=== PATIENT | female | born 1995 | race Caucasian/White ===

== ENCOUNTER 2017-08-10 17:36 | Emergency (ER) | payer MEDICAID ==
[~2017-08-10] VITALS: Ht 182.9 cm; Wt 70.9 kg
[2017-08-10 17:37] VITALS: BP 136/97
[2017-08-10] MEDS ORDERED: DIAZEPAM 5 MG TABLET ONE (17:56)
[2017-08-10] MEDS ORDERED: KETOROLAC 30 MG/1 ML IM ONE (18:00)
[2017-08-10] MEDS ORDERED: DIAZEPAM 5 MG TABLET PO ONE (18:30)
== END 2017-08-10 19:18 | disposition home or self-care (01) ==
LOC: ED 18:50
DX: S39.012A Strain of muscle, fascia and tendon of lower back, initial encounter (principal); M54.16 Radiculopathy, lumbar region; Z88.1 Allergy status to other antibiotic agents; F17.200 Nicotine dependence, unspecified, uncomplicated; X58.XXXA Exposure to other specified factors, initial encounter; Y93.89 Activity, other specified; Y99.8 Other external cause status; Y92.89 Other specified places as the place of occurrence of the external cause
CPT/HCPCS: 72110; 99284; J7512

== ENCOUNTER 2019-05-23 13:41 | Emergency (ER) | payer MEDICAID ==
[~2019-05-23] VITALS: Ht 182.9 cm; Wt 113.0 kg
--- NOTE | 2019-05-23 14:02 | NUR ---
THIS IS A 24 YO F W/ C/O SHAKINESS X1 MONTH AND MIGRAINES FOR 20/30 OF THE DAYS OF THE MONTH. PT STATES SHAKINESS IS WORSENING. DENIES CAFFEINE USE AND EXCESSIVE SUGAR CONSUMPTION. MATERNAL HX DM. RESP EVEN AND UNLABORED. NADN. CALL LIGHT IN REACH. PT IS RESTING ON GURNEY AWAITING ED EVAL. DENIES FURTHER NEEDS AT THIS TIME.
--- NOTE | 2019-05-23 14:39 | NUR ---
PT AMBULATED TO THE BR W/ A STEADY GAIT. PROVIDE URINE COLELCTION CUP.
[2019-05-23 14:42] VITALS: BP 137/104
[2019-05-23 14:53] LABS: HCG UR SG 1.028 (1.003-1.030)
--- NOTE | 2019-05-23 14:54 | NUR ---
LAB IN ROOM.
[2019-05-23 14:58] LABS: CULTURE INDICATED? YES; MICROSCOPIC INDICATED
[2019-05-23 15:21] LABS: ALANINE AMINOTRANSFERASE 14 U/L (12-78); ALBUMIN 3.8 g/dL (3.4-5.0); ANION GAP 5 mmol/L (5-15); CALCIUM 9.3 mg/dL (8.5-10.1); CHLORIDE 113 mmol/L (98-107); CREATININE 0.69 mg/dL (0.55-1.02)
[2019-05-23 15:24] LABS: ALKALINE PHOSPHATASE 71 U/L (45-117); BILIRUBIN,TOTAL 0.5 mg/dL (0.2-1.0); TOTAL PROTEIN 7.4 g/dL (6.4-8.2)
[2019-05-23 15:35] LABS: BASOPHILS # (AUTO) 0.04 x10^3/uL (0-0.1); BASOPHILS % (AUTO) 1 % (0-1); EOSINOPHILS # (AUTO) 0.14 x10^3/uL (0-0.4); EOSINOPHILS % (AUTO) 2 % (1-7); LYMPHOCYTES # (AUTO) 2.32 x10^3/uL (1-3.4); LYMPHOCYTES % (AUTO) 36 % (22-44); MD NO; MEAN CORPUSCULAR HEMOGLOBIN 30.8 pg (27.0-34.8); MEAN CORPUSCULAR HGB CONC 33.6 g/dL (32.4-35.8); MEAN CORPUSCULAR VOLUME 91.5 fL (80-100); MEAN PLATELET VOLUME 8.9 fL (7.4-10.4); MONOCYTES # (AUTO) 0.58 x10^3/uL (0.2-0.8); MONOCYTES % (AUTO) 9 % (2-9); NEUTROPHILS # (AUTO) 3.31 x10^3/uL (1.8-6.8); NEUTROPHILS % (AUTO) 52 % (42-75); PLATELET COUNT 283 x10^3/uL (130-400); RED BLOOD COUNT 4.59 x10^6/uL (3.82-5.3); RED CELL DISTRIBUTION WIDTH 12.9 % (9.6-15.2)
--- NOTE | 2019-05-23 15:54 | NUR ---
Patient given discharge instructions and they have confirmed that they understand the instructions. Patient ambulatory with steady gait.
== END 2019-05-23 15:55 | disposition home or self-care (01) ==
LOC: ED 15:37
DX: N30.00 Acute cystitis without hematuria (principal)
CPT/HCPCS: 36415; 80053; 81001; 81025; 85025; 87086; 99283

== ENCOUNTER 2020-07-07 12:34 | Emergency (ER) | payer MEDICAID ==
[~2020-07-07] VITALS: Ht 182.9 cm; Wt 104.0 kg
[2020-07-07] MEDS ORDERED: HYDROcodone/APAP 5/325 TABLET PO ONE (13:30)
[2020-07-07] MEDS ORDERED: HYDROcodone/APAP 5/325 TABLET ONE (13:46)
[2020-07-07 14:03] VITALS: BP 132/71
== END 2020-07-07 14:10 | disposition home or self-care (01) ==
LOC: ED 13:42
DX: M54.42 Lumbago with sciatica, left side (principal); F17.200 Nicotine dependence, unspecified, uncomplicated; J45.909 Unspecified asthma, uncomplicated
CPT/HCPCS: 99283

== ENCOUNTER 2020-07-13 11:04 | Emergency (ER) | payer MEDICAID ==
[~2020-07-13] VITALS: Ht 182.9 cm; Wt 104.6 kg
[2020-07-13] MEDS ORDERED: KETOROLAC 30 MG/1 ML IM ONE (12:00)
[2020-07-13] MEDS ORDERED: ACETAMINOPHEN 500 MG TABLET PO ONE (12:00)
[2020-07-13] MEDS ORDERED: METHOCARBAMOL 750 MG TABLET PO ONE (12:00)
[2020-07-13] MEDS ORDERED: KETOROLAC 30 MG/1 ML ONE (12:15)
[2020-07-13] MEDS ORDERED: METHOCARBAMOL 750 MG TABLET ONE (12:15)
[2020-07-13] MEDS ORDERED: ACETAMINOPHEN 500 MG TABLET ONE (12:15)
--- NOTE | 2020-07-13 12:26 | NUR ---
PT LYING DOWN IN BED RESTING AND LOOKNIG AT PHONE, VSS. A&O X4, NADN. MEDICATED PER JUN.
[2020-07-13] MEDS ORDERED: OXYcodone/APAP 5/325MG TABLET ONE (12:44)
[2020-07-13 13:00] VITALS: BP 127/56
[2020-07-13] MEDS ORDERED: HYDROcodone/APAP 5/325 TABLET PO ONE (13:00)
== END 2020-07-13 13:03 | disposition home or self-care (01) ==
LOC: ED 11:31
DX: M54.42 Lumbago with sciatica, left side (principal); J45.909 Unspecified asthma, uncomplicated
CPT/HCPCS: 72110; 96372; 99283; J1885

== ENCOUNTER 2020-11-26 08:09 | Emergency (ER) | payer MEDICAID ==
[~2020-11-26] VITALS: Ht 182.9 cm; Wt 103.9 kg
[2020-11-26 08:29] VITALS: BP 148/77
--- NOTE | 2020-11-26 08:59 | NUR ---
CIRCUIT TESTER: PT TO ROOM FROM LOBBY
--- NOTE | 2020-11-26 09:15 | NUR ---
PT AMBULATORY TO ROOM 27 W/ C/O L SIDE FACE ABSCESS TO LOWER INNER EYEBROW NEAR NOSE BRIDGE. PT STATES IT STARTED 6 DAYS AGO. PT RESTING ON LAKHWINDER. NADN. ZOFIA OLMOS AT BEDSIDE FOR EVAL.
== END 2020-11-26 09:33 | disposition home or self-care (01) ==
LOC: ED 09:15
DX: L02.01 Cutaneous abscess of face (principal); J45.909 Unspecified asthma, uncomplicated
CPT/HCPCS: 99283